=== PATIENT | female | born 1980 ===

== ENCOUNTER 2021-11-29 10:35 | Emergency (ER) | payer OTHER, MEDICAID ==
[~2021-11-29] VITALS: Ht 154.9 cm; Wt 81.6 kg
[2021-11-29] MEDS ORDERED: diphenhdrAMINE HCL 50 MG/1 ML VL ONE (10:48)
[2021-11-29] MEDS ORDERED: methylPREDNISolone SOD SUCC 125 MG/2 ML VL ONE (10:48)
[2021-11-29 10:56] VITALS: BP 148/70
[2021-11-29] MEDS ORDERED: methylPREDNISolone SOD SUCC 125 MG/2 ML VL IV ONE (11:00)
[2021-11-29] MEDS ORDERED: diphenhdrAMINE HCL 50 MG/1 ML VL IV ONE (11:00)
== END 2021-11-29 12:30 | disposition home or self-care (01) ==
LOC: ER 10:35
DX: T78.40XA Allergy, unspecified, initial encounter (principal); Z88.1 Allergy status to other antibiotic agents; X58.XXXD Exposure to other specified factors, subsequent encounter
CPT/HCPCS: 71045; 96374; 96375; 99284; J1200; J2930